=== PATIENT | male | born 1945 | race Asian ===

== ENCOUNTER 2016-11-19 18:26 | Emergency (ER) | payer MEDICARE, OTHER ==
[~2016-11-19] VITALS: Ht 157.5 cm; Wt 68.1 kg
[~2016-11-19 18:26] MED LIST: ASPI-825 PO; LISI-622 PO; MULT1TAB70 PO; TAMS0.4C32
[2016-11-19] MEDS ORDERED: HYDROCODONE/ACETAMINOPHEN 5-325 MG TABLET PO ONE (22:15)
[2016-11-19] MEDS ORDERED: CYCLOBENZAPRINE HCL 10 MG TABLET PO ONE (22:15)
[2016-11-19 22:25] VITALS: BP 141/85
== END 2016-11-19 23:18 | disposition home or self-care (01) ==
LOC: EMS 18:27
DX: S40.012A Contusion of left shoulder, initial encounter (principal); S70.12XA Contusion of left thigh, initial encounter; I10 Essential (primary) hypertension; Z79.82 Long term (current) use of aspirin; Z88.2 Allergy status to sulfonamides; V40.9XXA Unspecified car occupant injured in collision with pedestrian or animal in traffic accident, initial encounter; Y93.89 Activity, other specified; Y92.488 Other paved roadways as the place of occurrence of the external cause; Y99.8 Other external cause status
CPT/HCPCS: 29105; 99284